=== PATIENT | female | born 1990 | race Caucasian/White ===

== ENCOUNTER 2024-01-15 16:02 | Emergency (ER) | payer MEDICARE, SELFPAY ==
[2024-01-15 16:08] VITALS: BP 179/98
[2024-01-15 17:59] LABS: % Basophils 0.3 % (0-2); % Eosinophils 1.6 % (0-6); % Immature Granulocytes 0.3 % (0-0.5); % Lymphocytes 24.1 % (20.5-51.1); % Monocytes 5.6 % (1.7-9.3); % Neutrophils 68.1 % (42.2-75.2); Absolute Eosinophils 0.2 10^3/uL (0-0.7); Absolute Immature Granulocytes 0.1 10^3/uL (0-0.05); Absolute Lymphocytes 3.5 10^3/uL (1.2-3.4); Absolute Monocytes 0.8 10^3/uL (0.1-0.6); Absolute Neutrophils 9.9 10^3/uL (1.4-6.5); Hemoglobin 12.9 g/dL (12.0-16.0); Mean Corp Hgb Conc. 33.1 g/dL (33.0-37.0); Mean Corpuscular Hgb 27.6 pg (27.0-31.0); Mean Corpuscular Volume 83.3 fL (81.0-99.0); Mean Platelet Volume 9.5 fL (7.4-10.4); Nucleated Red Blood Cells % 0 %; Platelet Count 386 10^3/uL (130-400); Red Blood Cell Count 4.68 10^6/uL (4.20-5.40); Red Cell Dist. Width 13.6 % (11.5-14.5); White Blood Cell Count 14.6 10^3/uL (4.8-10.8)
[2024-01-15 18:14] LABS: Blood Urea Nitrogen 13 mg/dl (7-17); Calcium 8.9 mg/dl (8.4-10.2); Carbon Dioxide 23 mmol/L (22-30); Chloride 103 mmol/L (98-107); Glucose 86 mg/dl (70-99); Potassium 4.1 mmol/L (3.5-5.1); Sodium 135 mmol/L (135-145); eGFR > 60.00
--- NOTE | 2024-01-15 18:41 | ED.GENMED ---
History of Present Illness
General
Chief Complaint: Dental Problem
Source: patient
Exam Limitations: none
Time Seen by Provider: 01/15/24 16:24
Nursing documentation reviewed up to this point in time: agreed with
Travel History
Have you had any contact with someone who has COVID-19?: No
Do you have any symptoms of coronavirus? Fever > 100 degrees, chills, cough, shortness of breath, sore throat, loss of taste or smell, muscle aches, or headache?: No
History of Present Illness
History of Present Illness:
Patient is a 33-year-old female who denies significant past medical history who presents the emergency department for evaluation of dental pain and facial swelling. Patient reports that her symptoms have been going on for at least the past week.
Patient reports that it started with pain over one of her teeth in her right lower jaw. Patient reports that she went to an urgent care facility and was prescribed clindamycin. She reports that she took 300 mg 4 times a day for 1 week. Patient
reports that she finished the antibiotics yesterday. She reports that while she was on the antibiotics, it felt like her pain would get better but would then get worse again. Patient reports that today she noticed the pain started to radiate into
her right submandibular region. Patient reports that it also feels swollen there. Patient denies any difficulty swallowing or shortness of breath. Patient denies fevers or chills. Patient reports that she did contact the dentist but does not
have an appointment until February.
Past History
Past History
ED Past Medical History: None
ED Past Surgical History: Gynecological (D&C)
Social History
Tobacco: Non-smoker
Alcohol: None
Drug: None
Review of Systems
Review of Systems
Allergies reviewed?: Yes
All Other Systems: Not applicable
Constitutional: Reports no symptoms; Denies fever
EENT: Reports mouth pain
Respiratory: Reports no symptoms; Denies trouble breathing
Cardiac: Reports no symptoms
ABD/GI: Reports no symptoms
: Reports no symptoms
Musculoskeletal: Reports no symptoms
Skin: Reports no symptoms
Neurological: Reports no symptoms
Endocrine: Reports no symptoms
Hematologic/Lymphatic: Reports no symptoms
Psychiatric: Reports no symptoms
Phy Exam
General Physical Exam
General Presentation: well appearing and no apparent distress
General Skin: warm and dry
General Habitus: normal
General Mental: alert
General Hydration: appears well hydrated
ENT Exam
ENT Exam: EOMI, pharynx normal, neck supple, normocephalic, swallowing well and other (tenderness over tooth #27 without surrounding fluctuance or drainable collection, there is swelling over the right lower jaw and into the right submandibular
space with mild swelling, there is no brawny edema, no elevation of the tongue)
Eye Exam
Eye Exam: PERRL, cornea clear and conjunctiva normal
Cardiovascular Exam
Cardiovascular Exam: regular rate/rhythm, no edema, no murmur and normal peripheral pulses
Pulmonary Exam
Pulmonary Exam: lungs clear, no respiratory distress, no rales, no crackles, no rhonchi, no stridor, no wheezing and no cough
Neurological Exam
Neurological Exam: alert, oriented x3, no motor deficits and speech normal
Skin Exam
Skin Exam: normal color, warm/dry, no rash and no petechia
Psychiatric Exam
Psychiatric Exam: normal mood/affect
Course
Orders/Labs/Results
Orders:
Orders
01/15/24 17:23
CT Neck With Iv Contrast Urgent
Comment:
Reason For Exam: right dental pain with submandibular swelling
01/15/24 17:32
Basic Metabolic Panel Urgent
Complete Blood Count/With Diff Urgent
01/15/24 20:39
Ibuprofen [Motrin] 600 mg PO NOW STA
Abnormal Lab Results
01/15/24
17:32
WBC 14.6 H 10^3/uL
(4.8-10.8)
Abs Immat Gran (auto) 0.1 H 10^3/uL
(0-0.05)
Absolute Neuts (auto) 9.9 H 10^3/uL
(1.4-6.5)
Absolute Lymphs (auto) 3.5 H 10^3/uL
(1.2-3.4)
Absolute Monos (auto) 0.8 H 10^3/uL
(0.1-0.6)
01/15/24 17:32
01/15/24 17:32
Vital Signs
Initial and Last Documented VS:
Initial Vital Signs
Temp Pulse Resp BP Pulse Ox
99.1 F 96 20 179/98 99
01/15/24 16:08 01/15/24 16:08 01/15/24 16:08 01/15/24 16:08 01/15/24 16:08
Last Documented Vital Signs
Temp Pulse Resp BP Pulse Ox
99.1 F 95 17 150/78 96
01/15/24 16:08 01/15/24 20:44 01/15/24 20:44 01/15/24 20:44 01/15/24 20:44
*Critical Care Note
Total Time (30-74mins, 75-104mins- exclusive of procedures): Not Applicable
Update Note
Update Note:
33-year-old female presents with worsening right lower dental pain with radiation of pain and swelling into the right submandibular space despite taking clindamycin for the past 7 days. Patient denies systemic symptoms such as fevers. Patient
denies any trismus, difficulty swallowing, or shortness of breath. On arrival, patient is hypertensive, she is afebrile. On exam, patient is well-appearing, she is in no acute distress, she is tolerating oral secretions without difficulty, there is
no evidence of drainable collection or abscess but there is mild swelling and tenderness over the right submandibular space. Therefore, decision was made to obtain labs and imaging of the area. Labs are remarkable for a leukocytosis of 14.6 with a
left shift. CT of the neck demonstrates evidence of submandibular inflammation but no evidence of Dylon's angina. Question whether the submandibular inflammation is secondary to dental abscess versus sialoadenitis. Therefore, will recommend warm
compresses to the area along with sialagogues. Patient will be prescribed a course of Augmentin. Patient advised she may continue to take ibuprofen and/or Tylenol for pain. Patient encouraged to follow-up closely with dental medicine. Patient is
safe for discharge to home with return precautions, she expressed understanding of the plan and agreed.
ED Attending Note
-
Portions of this chart may have been created with voice recognition software.� Occasional wrong word or��sound alike� substitutions may have occurred due to the inherent limitations of voice recognition software.
Discharge Plan
Departure
Patient Disposition: Home (Routine Discharge)
Date of Disposition: 01/15/24
Time of Disposition: 20:39
Patient with high blood pressure during this ER visit?: Yes
Condition: Good
Covid-19: Not Applicable
Discharge Problem:
Pain, dental, Submandibular gland inflammation
Instructions: Tooth Abscess (DC), Salivary Gland Infection
Prescriptions:
New
amoxicillin-pot clavulanate 875-125 mg tablet
1 tab PO BID 10 Days Qty: 20 0RF
ibuprofen 600 mg tablet
600 mg PO Q6H PRN (Reason: Pain) 5 Days Qty: 20 0RF
Discontinued
amoxicillin 875 mg tablet
875 mg PO BID Qty: 14 0RF
Referrals:
Follow up with a dentist, as soon as possible [Other] - Tomorrow
Daisy Smith CRNP [Family Provider] -
Activity Restrictions/Additional Instructions:
You were seen in the emergency department for evaluation of dental pain with radiation into your right jaw. While you were in the emergency department, you had blood work which showed a mildly elevated white blood cell count which indicates
infection or inflammation. You had a CT scan of your face which shows no evidence of a deep space infection although there is evidence of inflammation of the gland underneath your jaw. This could be due to a dental abscess but could also be due to
an infection of the salivary gland. Please use warm compresses to the area for 20 minutes at a time 4-5 times a day. Please take the antibiotic that was prescribed to do a day exactly as directed, if you start to feel better. You may continue to
take ibuprofen for pain and inflammation. Please suck on sour candies to increase saliva production. Please follow-up with a dentist soon as possible for further evaluation and treatment. Please return to the emergency department for increasing
pain, swelling, redness, difficulty swallowing, fever greater than 100.4 �F, or for any other worsening or concerning symptoms.
Interventions
Interventions:
*Risk Screen - Suicide Last Done: 01/15/24 16:08
*General Assessment Last Done: 01/15/24 16:08
*Neglect/Abuse Screening Last Done: 01/15/24 16:08
*ED COVID-19 Vaccine History Last Done: 01/15/24 16:08
*Nursing Disposition Last Done: 01/15/24 20:49
Discharge Date and Time
Discharge Date/Time: 01/15/24 20:50
[2024-01-15] MEDS: MOTRIN 600 MG PO (20:42)
[2024-01-15 20:44] VITALS: BP 150/78
== END 2024-01-15 20:50 | disposition home or self-care (01) ==
LOC: EMR 16:02
PROVIDERS: Physician Assistant Medical; EMERGENCY PHYSICIAN Emergency Medicine; FAMILY PHYSICIAN Nurse Practitioner
DX: K11.20 Sialoadenitis, unspecified (principal); K08.89 Other specified disorders of teeth and supporting structures; R03.0 Elevated blood-pressure reading, without diagnosis of hypertension
CPT/HCPCS: 99285; 70491; 80048; 85025; Q9967